=== PATIENT | female | born 1990 | race Two or more races ===

== ENCOUNTER 2020-12-05 09:11 | Emergency (ER) | payer MEDICAID ==
[~2020-12-05] VITALS: Ht 154.9 cm; Wt 79.4 kg
[2020-12-05 09:11] VITALS: BP_SYST 137
--- NOTE | 2020-12-05 09:11 | NUR ---
BROUGHT BACK TO BED #5 AND TRIAGED, PLACED IN BED #5 AND TRIAGED. REPORT GIVEN TO SHEREE
--- NOTE | 2020-12-05 09:20 | NUR ---
pt arrives from home w/ c/o right sided CP 12/03, radiating to the right arm. pt also reports that she feels her hands have "pins and needles". Pt does not have any cardiac hx. AAOx4.
--- NOTE | 2020-12-05 09:30 | NUR ---
DULCE Luna at bedside examining patient.
[2020-12-05] MEDS ORDERED: IBUPROFEN 600 MG TABLET PO ONE (09:45)
--- NOTE | 2020-12-05 10:00 | NUR ---
Patient transported to radiology via , accompanied by x-ray tech.
[2020-12-05 11:21] VITALS: BP_SYST 137
--- NOTE | 2020-12-05 11:22 | NUR ---
Patient given written and verbal discharge instructions and verbalizes understanding. ER MD discussed with patient the results and treatment provided. Patient in stable condition. ID arm band removed. Patient educated on pain management and to follow up with PMD. Pain Scale 3/10. Opportunity for questions provided and answered. Medication side effect fact sheet provided.
== END 2020-12-05 11:22 | disposition home or self-care (01) ==
LOC: SED 09:11
DX: M94.0 Chondrocostal junction syndrome [Tietze] (principal); F41.0 Panic disorder [episodic paroxysmal anxiety]
CPT/HCPCS: 71045; 81025; 93005; 99283